=== PATIENT | male | born 1945 | race Caucasian/White ===

== ENCOUNTER 2020-09-13 12:03 | Emergency (ER) | payer OTHER ==
[~2020-09-13] VITALS: Ht 188 cm; Wt 110.0 kg
--- NOTE | 2020-09-13 12:12 | NUR ---
[employer]IC: PT TO ROOM VIA CHIP
--- NOTE | 2020-09-13 12:45 | NUR ---
PATIENT BIB [facility] WITH CHIEF C/O DIZZINESS AND SOB. PER PATIENT WHEN HE WOKE UP THIS MORNING EVERYTIME HE STOOD UP HE STARTED FEELING DIZZY AND SOB. PATIENT DENIES FEVER, CHILLS, DENIES N/V/D. PER EMS VSS EN ROUTE, EXCEPT PATIENT'S BP 154/101. PATIENT DENIES FALLS OR TRAUMA. PATIENT DOES TAKE MEDICATION FOR VERTIGO PER EMS, PATIENT DID NOT TAKE THIS MORNING. PER EMS FIRST DEGREE AV BLOCK SEEN ON 12-LEAD. PATIENT A&OX4, CONNECTED TO REHABILITATION CASEWORKER, VSS, CALL LIGHT WITHIN REACH. 20 GAUGE IV STARTED LEFT FA, BLOOD COLLECTED FOR LAB.
--- NOTE | 2020-09-13 12:48 | NUR ---
PATIENT STATES HE IS FEELING "MUCH BETTER THAN THIS MORNING."
--- NOTE | 2020-09-13 13:11 | NUR ---
ERMD AT BESIDE FOR EVALUATION.
[2020-09-13] MEDS ORDERED: MECLIZINE CHEWABLE 25 MG TAB ONE (13:22)
--- NOTE | 2020-09-13 13:29 | NUR ---
PATIENT MEDICATED PER [facility], DAUGHTER AT BEDSIDE. NADN, VSS, SIDE RAILS UP X2, CALL LIGHT WITHIN REACH.
[2020-09-13] MEDS ORDERED: SODIUM CHLORIDE 0.9% 1,000ML IVBOLUS ONE (13:30)
[2020-09-13] MEDS ORDERED: MECLIZINE CHEWABLE 25 MG TAB PO ONE (13:30)
[2020-09-13] MEDS ORDERED: SODIUM CHLORIDE FLUSH 10ML SYR IVF ONE (13:30)
[2020-09-13 13:40] LABS: BASOPHILS % (AUTO) 1 % (0-1); EOSINOPHILS % (AUTO) 1 % (1-7); LYMPHOCYTES % (AUTO) 18 % (22-44); MEAN CORPUSCULAR HEMOGLOBIN 32.9 pg (27.5-34.5); MEAN CORPUSCULAR HGB CONC 34.4 g/dL (33.2-36.2); MONOCYTES % (AUTO) 6 % (2-9); NEUTROPHILS % (AUTO) 75 % (42-75); PLATELET COUNT 179 x10^3/uL (130-400); RED BLOOD COUNT 4.24 x10^6/uL (4.38-5.82); RED CELL DISTRIBUTION WIDTH 14.8 % (9.4-14.8)
[2020-09-13 13:45] LABS: MD NO
[2020-09-13 13:48] LABS: ALBUMIN 3.6 g/dL (3.4-5.0); ANION GAP 4 mmol/L (5-15); CALCIUM 8.7 mg/dL (8.5-10.1); CHLORIDE 107 mmol/L (98-107); CREATININE 1.12 mg/dL (0.7-1.3)
--- NOTE | 2020-09-13 13:51 | NUR ---
PATIENT TO IMAGING.
[2020-09-13 13:52] LABS: TROPONIN I < 0.015 ng/mL (0.000-0.045)
--- NOTE | 2020-09-13 14:21 | NUR ---
PATIENT BACK FROM IMAGING, RESTING IN GURNEY, DAUGHTER AT BEDSIDE, DEMETRI PATTEN, CALL LIGHT WITHIN REACH.
--- NOTE | 2020-09-13 15:28 | NUR ---
PATIENT AMBULATED TO BATHROOM WITH STEADY GAIT.
[2020-09-13 16:01] VITALS: BP 153/91
--- NOTE | 2020-09-13 16:02 | NUR ---
Patient and daughter given discharge instructions and prescription and they have confirmed that they understand the instructions, all patient belongings gathered and taken with patient. IV removed with tip intact. Patient stable and ambulatory with steady gait from ED with daughter at side.
== END 2020-09-13 16:03 | disposition home or self-care (01) ==
LOC: ED 15:45
DX: R42 Dizziness and giddiness (principal); I49.1 Atrial premature depolarization; R51.9 Headache, unspecified; J44.9 Chronic obstructive pulmonary disease, unspecified; Z87.891 Personal history of nicotine dependence
CPT/HCPCS: 36415; 70450; 80048; 82040; 84484; 85025; 93005; 96360; 99285; J7030